=== PATIENT | male | born 1990 | race Caucasian/White ===

== ENCOUNTER 2017-10-04 21:38 | Emergency (ER) | payer OTHER ==
[~2017-10-04] VITALS: Ht 167.6 cm; Wt 82.4 kg
[2017-10-04 21:42] VITALS: BP 160/92; TEMP 36.9; Ht 167.6 cm; Wt 82.4 kg
[2017-10-04] MEDS ORDERED: PENI500T2 PO (22:16)
[2017-10-04] MEDS ORDERED: HYDR-5688 PO (22:16)
[2017-10-04 22:28] VITALS: PULSE 64; O2SAT 99
[2017-10-04] MEDS ORDERED: PENICILLIN HOME PACK 500MG (4 DOSES)BTL PO ONE (22:30)
[2017-10-04] MEDS ORDERED: NORCO 5/325MG HOME PACK PO ONE (22:30)
--- NOTE | 2017-10-05 18:10 | EMERGENCY ROOM VISIT NOTE ---
ED Visit Note First contact with patient: 21:44 CHIEF COMPLAINT: Toothache. HISTORY OF PRESENT ILLNESS: Mr. Celeste is a 26-year-old white male who ambulates into the ED accompanied by his girlfriend complaining of right maxilla dental pain. Historically patient reports she has a history of severe dental disease. He was seen by a local dentist approximately 4 weeks ago and was diagnosed with a dental abscess. He was placed on amoxicillin for his infection and was given Tylenol 3 tablets. He was supposed to have a follow-up with that dentist this week but was not able to get to the dentist office by private vehicle so he missed the appointment. He did call the dentist back and told him that he was having return of symptoms and he reports the dentist refused to divide additional antibiotic therapy and narcotics. He reports a progressive dental pain for 6 days over the right axilla in area of tooth #3. He describes his pain as a throbbing and deep achy sensation. He rates his discomfort 7/10. His pain is radiating in towards the preauricular area on the right. His pain worsens with palpation, exposure to hot and cold foods and chewing. He has not identified any alleviating factors related to the pain. He reports he has been taking ibuprofen without relief of his discomfort. He denies any associated symptoms including fevers, chills, sweats , recent dental trauma, facial swelling/erythema. REVIEW OF SYSTEMS: As noted above in History of Present Illness. 8 body systems were reviewed with this patient and found to be negative unless noted above otherwise. PMH: As noted above. CURRENT MEDICATION: Patient denies. ALLERGIES TO MEDICATION: Tylenol with Codeine. SOCIAL HISTORY: Patient is currently employed; he lives with his girlfriend and feels safe in his home environment; he admits to tobacco and alcohol use. PHYSICAL EXAM: Vital Signs: Date Time Temp Pulse Resp B/P (MAP) Pulse Ox O2 Delivery O2 Flow Rate FiO2 10/04/17 22:28 64 18 99 10/04/17 21:42 36.9 101 18 160/92 98 Room Air General: 26 year-old white male in mild to moderate distress due to pain, nontoxic appearing, afebrile and hemodynamically stable. Neurological: Awake, alert and oriented to person, place and time. Answering questions appropriately and following commands. Normal gait. Good hand eye coordination. No focal motor or sensory deficits. Skin: Warm, dry and pink. No soft tissue lesions, rashes, or trauma noted. HEENT: Atraumatic and normocephalic. No facial swelling or erythema. Oral cavity is moist and pink. Airway is patent. Uvula is midline and no abscesses are seen. Airway is patent. Speech is normal. Patient has multiple decaying teeth on the mandible and maxilla bilaterally. In the area of the patient's pain he has erosion of the pupil surface over tooth #3. It also appears the posterior quadrant of the tooth is also missing. Tooth #3 is very sensitive to touch. The tooth is stable in its socket. There is mild gingival erythema surrounding this tissue and just posterior to this tissue there is mild erythema of the mucosa. There is no obvious visible abscess and one was not able to be palpated. No local lymphadenopathy. ED COURSE: Patient is assessed as noted above. Patient's medication list was reviewed. Patient is educated about his findings and instructed on his; treatment plan; she verbalizes understanding and agreement with this plan. CLINIC IMPRESSION: Dental pain. Possible early dental abscess. DISPOSITION: Patient discharged home in stable condition; prior to departure he was reassessed and subjectively reported he was feeling the better and rated his discomfort 3/10. PLAN: Patient was placed on the sliding pain medication scale of ibuprofen, acetaminophen and Crocker; his name was checked in the state database and no red flags were noted and he was given appropriate narcotic precautions. Patient was prescribed 500 mg of Pen-Vee K 4 times a day for 10 days. Patient was encouraged to stop smoking. Patient was encouraged to cover the involved teeth with dental wax and/or already been treated gum. Patient was encouraged to clean his mouth with brushing, flossing and gargling with salt water for 5 times a day. Patient was given the name of Dr. Tito Dyer for follow-up care and treatment. Patient was encouraged return to the ED for worsening/uncontrolled pain, facial swelling, fevers or any new/concerning symptoms.
== END 2017-10-04 22:30 | disposition home or self-care (01) ==
LOC: C.EDB 21:39 → C.EDD 22:30
DX: K08.89 Other specified disorders of teeth and supporting structures (principal); K02.9 Dental caries, unspecified; Z72.0 Tobacco use

== ENCOUNTER 2017-11-04 23:56 | Emergency (ER) | payer OTHER ==
[~2017-11-04] VITALS: Ht 167.6 cm; Wt 81.4 kg
[~2017-11-04 23:56] MED LIST: HYDR-5688 PO
[2017-11-05] VITALS: TEMP 36.5; Ht 167.6 cm; Wt 81.4 kg
[2017-11-05] MEDS ORDERED: KLN1X PO (00:21)
[2017-11-05] MEDS ORDERED: SERT-234 PO (00:21)
[2017-11-05] MEDS ORDERED: HYDROCODONE/ACETAMIN 5/325MG TAB PO STA (00:26)
[2017-11-05] MEDS ORDERED: NORCO 5/325MG HOME PACK PO ONE (00:30)
[2017-11-05] MEDS ORDERED: HYDR-5688 PO (00:41)
[2017-11-05 00:45] VITALS: BP 122/74; PULSE 85; O2SAT 98
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
== END 2017-11-05 00:47 | disposition home or self-care (01) ==
LOC: C.EDB 23:57 → C.EDC 11-05 00:47
DX: T23.241A Burn of second degree of multiple right fingers (nail), including thumb, initial encounter (principal); T23.242A Burn of second degree of multiple left fingers (nail), including thumb, initial encounter; X15.0XXA Contact with hot stove (kitchen), initial encounter; Y92.89 Other specified places as the place of occurrence of the external cause; K02.9 Dental caries, unspecified; F17.210 Nicotine dependence, cigarettes, uncomplicated; Z79.899 Other long term (current) drug therapy